=== PATIENT | male | born 1935 | race Caucasian/White ===

== ENCOUNTER 2016-07-24 10:21 | Emergency (ER) | payer MEDICARE, BC ==
--- NOTE | 2016-07-24 10:43 | EDM.PDOC ---
[id number]: 07/24/16 10:25 Source of Information: Reports: Patient, EMS, RN History Limitations: Reports: No limitations - History of Present Illness INITIAL COMMENTS - FREE TEXT/NARRATIVE: 81-year-old male who had a coughing spell yesterday followed by some brief mental status change had a second episode this morning that was similar so the nurses sent him in to be seen. Apparently he has a history of aspiration pneumonia. His vitals are stable and EMS felt he was oriented, asymptomatic, his blood sugar was 140 an EKG showed atrial fibrillation. He displayed no shortness of breath or cough while in route or at the emergency room. Onset: unknown/unsure Severity: mild Associated Symptoms: Denies: chest pain, fever/chills, headaches, shortness of breath Denies pain Pain Score (Numeric/FACES): 0 - Related Data Allergies Allergy/AdvReac Type Severity Reaction Status Date / Time lorazepam Allergy Cannot Verified 07/24/16 10:46 Remember Home Meds: Home Meds Acetaminophen [Acetaminophen Extra Strength] 500 mg PO QID PRN 04/09/14 [History ] Donepezil [Aricept] 10 mg PO BEDTIME 04/09/14 [History] Lisinopril [Prinivil] 5 mg PO DAILY 04/09/14 [History] Loperamide [Imodium] 2 mg PO ASDIRECTED PRN 04/09/14 [History] Nitroglycerin [Nitrostat] 0.4 mg PO ASDIRECTED PRN 04/09/14 [History] Simvastatin [Zocor] 40 mg PO DAILY 04/09/14 [History] Warfarin Sodium 10 mg PO DAILY 04/09/14 [History] Citalopram Hydrobromide [Celexa] 10 mg PO DAILY 05/24/16 [History] Insulin Aspart [Novolog Flexpen] 10 units SUBCUT TIDMEALS 05/24/16 [History] Insulin Glarg,Human.Rec.Analog [LantUS Solostar] 25 unit SUBCUT BEDTIME [History] Insulin Glarg,Human.Rec.Analog [LantUS Solostar] 52 unit SUBCUT DAILY 05/24/16 [ History] Moxifloxacin [Vigamox 0.5% Ophth Soln] 1 drop EYEBOTH QID 05/24/16 [History] prednisoLONE Acetate [Pred Forte 1% Ophth Susp] 1 drop EYEBOTH QID 05/24/16 [ History] Past Medical History HEENT History: Reports: Cataract, Hard of hearing Cardiovascular History: Reports: Afib (Paroxysmal), Hypertension Respiratory History: Reports: PE Gastrointestinal History: Reports: Cholelithiasis Genitourinary History: Reports: Prostate disorder Neurological History: Reports: Alzheimers disease Psychiatric History: Reports: Dementia Endocrine/Metabolic History: Reports: Diabetes, type II Oncologic (Cancer) History: Reports: Prostate Dermatologic History: Reports: Other (see below) Other Dermatologic History: skin cancer - Past Surgical History HEENT Surgical History: Reports: Cataract surgery GI Surgical History: Reports: Cholecystectomy Male Surgical History: Reports: Prostatectomy, Other (see below) Other Male Surgeries/Procedures: testicles removed bilat Neurological Surgical History: Reports: Thoracic spine, Other (see below) Other Neurological Surgeries/Procedures: 2 rods in back Social & Family History - Tobacco Use Smoking Status *Q: Unknown Ever Smoked Second Hand Smoke Exposure: No - Caffeine Use Caffeine Use: Reports: None - Alcohol Use Days Per Week of Alcohol Use: 0 - Recreational Drug Use Recreational Drug Use: No ED ROS GENERAL - Review of Systems Review Of Systems: See Below Constitutional: Denies: fever, chills, malaise Respiratory: Reports: Cough. Denies: Shortness of Breath Cardiovascular: Denies: Chest pain GI/Abdominal: Denies: Abdominal pain, Nausea, Vomiting Neurological: Denies: Headache ED EXAM, GENERAL - Physical Exam Exam: See Below Exam Limited By: No limitations General Appearance: alert, no apparent distress Eye Exam: bilateral eye: EOMI Respiratory/Chest: no respiratory distress, lungs clear Cardiovascular: irregularly irregular GI/Abdominal: soft, non tender Neurological: alert Psychiatric: normal affect, normal mood Skin Exam: Warm, Dry Course - Vital Signs Last Recorded V/S: Last Vital Signs Temp 98.1 F 07/24/16 10:55 Pulse 65 07/24/16 11:55 Resp 16 07/24/16 11:55 BP 111/89 07/24/16 11:55 Pulse Ox 91 L 07/24/16 11:55 - Orders/Labs/Meds Labs: Laboratory Tests 07/24/16 07/24/16 Range/Units 10:55 10:55 WBC 12.7 H (4.5-11.0) K/uL RBC 4.74 (4.30-5.90) M/uL Hgb 14.4 (12.0-15.0) g/dL Hct 43.7 (40.0-54.0) % MCV 92 (80-98) fL MCH 30 (27-31) pg MCHC 33 (32-36) % Plt Count 247 (150-400) K/uL Neut % (Auto) 81 H (36-66) % Lymph % (Auto) 7 L (24-44) % Jack % (Auto) 11 H (2-6) % Eos % (Auto) 1 L (2-4) % Baso % (Auto) 0 (0-1) % Sodium 138 L (140-148) mmol/L Potassium 4.9 (3.6-5.2) mmol/L Chloride 102 (100-108) mmol/L Carbon Dioxide 31 (21-32) mmol/L Anion Gap 9.9 (5.0-14.0) mmol/L BUN 19 H (7-18) mg/dL Creatinine 1.1 (0.8-1.3) mg/dL Est Cr Clr Drug Dosing 60.22 mL/min Estimated GFR (MDRD) > 60 (>60) Glucose 147 H (74-106) mg/dL Calcium 8.6 (8.5-10.1) mg/dL - Re-Assessments/Exams Free Text/Narrative Re-Assessment/Exam: 07/24/16 10:42 Despite the patient not displaying any symptoms his pulse oximetry was mildly low at 89-91% on room air so a one view portable chest x-ray was obtained along with a CBC and BMP. 07/24/16 10:55 Pulse oximetry improved to low to mid 90s on room air, chest x-ray was negative. 07/24/16 11:25 White count was slightly elevated at 12,700 but the rest of his labs were reassuring. Patient remained stable and asymptomatic while in the emergency room over a course of 2 hours. No treatment needed at this time, he'll be discharged back to the intermediate with followup if worsening or concerns. Departure - Departure Time of Disposition: 12:16 Disposition: DC/Tfer to [facility] Condition: good Clinical Impression: Confused, Dementia, Cough in adult patient Instructions: Cough, Adult, [id number], Confusion, Dementia, [id number] Referrals: PCP,None [Primary Care Provider] - Forms: ED Department Discharge Additional Instructions: No change in medications at this time, recheck if fever or difficulty breathing occurs. Keep appointment this afternoon with his primary care as scheduled if possible.
--- NOTE | 2016-07-24 11:59 | CR ---
Mild-moderate cardiomegaly. Cardiomegaly stable compared to 04/10/2014. Postsurgical changes to the sp ine.. Pulmonary vasculature within normal limits. Streaky density left lung base is evident. Mildly worse compared to prior this could reflect atelectatic change only developing infiltrate difficult t o exclude. Focal nodule about the left first rib this could indicate a calcified granuloma but not d efinitive. CT follow-up could exclude a noncalcified pulmonary nodule. Findings called to Dr.Kobrige concpecion
[2016-07-24 12:15] VITALS: BP 111/89
== END 2016-07-24 11:30 ==
LOC: JP.ED 10:21
DX: R41.0 Disorientation, unspecified (principal); F03.90 Unspecified dementia, unspecified severity, without behavioral disturbance, psychotic disturbance, mood disturbance, and anxiety; R05 Cough; I48.91 Unspecified atrial fibrillation; I10 Essential (primary) hypertension; F02.80 Dementia in other diseases classified elsewhere, unspecified severity, without behavioral disturbance, psychotic disturbance, mood disturbance, and anxiety; G30.9 Alzheimer's disease, unspecified; E11.9 Type 2 diabetes mellitus without complications; Z85.46 Personal history of malignant neoplasm of prostate; Z86.711 Personal history of pulmonary embolism; Z98.49 Cataract extraction status, unspecified eye; Z90.49 Acquired absence of other specified parts of digestive tract; Z90.79 Acquired absence of other genital organ(s); Z98.890 Other specified postprocedural states; Z79.4 Long term (current) use of insulin; Z79.01 Long term (current) use of anticoagulants; Z79.899 Other long term (current) drug therapy; Z88.8 Allergy status to other drugs, medicaments and biological substances
CPT/HCPCS: 36415; 71010; 71010-26; 80048; 85025; 99284; 99285

== ENCOUNTER 2017-04-09 02:29 | Emergency (ER) | payer MEDICARE, BC ==
--- NOTE | 2017-04-09 03:09 | EDM.PDOC ---
ED HPI GENERAL MEDICAL PROBLEM - General Chief Complaint: General Stated Complaint: FALL VIA NORTH Time Seen by Provider: 04/09/17 03:04 Source of Information: Reports: Patient History Limitations: Reports: No Limitations - History of Present Illness INITIAL COMMENTS - FREE TEXT/NARRATIVE: pt fell forward out of a lift chair and hit his nose. He has a skin tear on the scalp and a skin tear over his nose. Onset: Today, Sudden, Other (pt fell forward. ) Duration: Hour(s): Location: Reports: Face Associated Symptoms: Reports: No Other Symptoms nose/ forehead Pain Score (Numeric/FACES): 5 - Related Data Allergies Allergy/AdvReac Type Severity Reaction Status Date / Time lorazepam Allergy Cannot Verified 04/09/17 02:33 Remember Home Meds: Home Meds Acetaminophen [Acetaminophen Extra Strength] 650 mg PO TID 04/09/14 [History] Donepezil [Aricept] 10 mg PO BEDTIME 04/09/14 [History] Lisinopril [Prinivil] 5 mg PO DAILY 04/09/14 [History] Nitroglycerin [Nitrostat] 0.4 mg PO ASDIRECTED PRN 04/09/14 [History] Warfarin Sodium 10 mg PO ASDIRECTED 04/09/14 [History] Citalopram Hydrobromide [Celexa] 10 mg PO DAILY 05/24/16 [History] Insulin Aspart [Novolog Flexpen] 16 units SUBCUT TIDMEALS 05/24/16 [History] Insulin Glarg,Human.Rec.Analog [LantUS Solostar] 32 unit SUBCUT BEDTIME [History] Insulin Glarg,Human.Rec.Analog [LantUS Solostar] 55 unit SUBCUT DAILY 05/24/16 [ History] Albuterol/Ipratropium [DuoNeb 3.0-0.5 MG/3 ML] 1 inh INH QID PRN 04/09/17 [ History] Dextrose [Glutose 15] 1 dose PO ASDIRECTED 04/09/17 [History] Diclofenac Sodium [Voltaren 1% Gel] 1 applic TOP TID 04/09/17 [History] Lanolin/Mineral Oil [Eucerin Original Lotion] 1 applic TOP BID 04/09/17 [History ] Loperamide [Imodium] 2 mg PO ASDIRECTED 04/09/17 [History] Sennosides/Docusate Sodium [Senna S Tablet] 1 tab PO ASDIRECTED 04/09/17 [ History] Warfarin Sodium 7.5 mg PO ASDIRECTED 04/09/17 [History] Past Medical History HEENT History: Reports: Cataract, Hard of Hearing Cardiovascular History: Reports: Afib, High Cholesterol, Hypertension Respiratory History: Reports: PE Gastrointestinal History: Reports: Cholelithiasis, GERD Genitourinary History: Reports: Prostate Disorder, Urinary Incontinence Musculoskeletal History: Reports: Back Pain, Chronic Neurological History: Reports: Alzheimers Disease, Neuropathy, Diabetic Psychiatric History: Reports: Dementia Endocrine/Metabolic History: Reports: Diabetes, Type II, Obesity/BMI 30+ Immunologic History: Reports: SLE Oncologic (Cancer) History: Reports: Prostate Dermatologic History: Reports: Other (See Below) Other Dermatologic History: skin cancer - Past Surgical History HEENT Surgical History: Reports: Cataract Surgery GI Surgical History: Reports: Cholecystectomy Male Surgical History: Reports: Prostatectomy Neurological Surgical History: Reports: Thoracic Spine, Other (See Below) Social & Family History - Tobacco Use Smoking Status *Q: Never Smoker Second Hand Smoke Exposure: No - Caffeine Use Caffeine Use: Reports: None - Alcohol Use Days Per Week of Alcohol Use: 0 - Recreational Drug Use Recreational Drug Use: No ED ROS GENERAL - Review of Systems Review Of Systems: See Below Constitutional: Reports: No Symptoms HEENT: Reports: Other (pt has a skin tear on the scalp on the rt and a skin tear over the nose. ) Respiratory: Reports: No Symptoms Cardiovascular: Reports: No Symptoms Endocrine: Reports: No Symptoms GI/Abdominal: Reports: No Symptoms : Reports: No Symptoms ED EXAM, GENERAL - Physical Exam Exam: See Below Free Text/Narrative:: pt arrived after falling forward out of a lift chair. Exam Limited By: No Limitations General Appearance: Alert, Other (pt did respond immediatly, He ended up with a skin tear on his nose and on the rt scalp area. He does have swelling on the nose. pupils are equal and reactive. ) Ears: Normal TMs Nose: Nasal Tenderness, Nasal Swelling, Other ( tender over the bridge of the nose. ) Throat/Mouth: Normal Inspection Head: Atraumatic Neck: Normal Inspection Respiratory/Chest: No Respiratory Distress Cardiovascular: Regular Rate, Rhythm GI/Abdominal: Soft, Non-Tender Back Exam: Normal Inspection Extremities: Pedal Edema, Redness, Other (pt has chronic swelling involving his lower legs. He has no known acuite injury. ) Neurological: Alert, Normal Cognition, Other ( Pt does have dementia. ) Psychiatric: Normal Affect Course - Vital Signs Last Recorded V/S: Last Vital Signs Temp 36.1 C 04/09/17 02:30 Pulse 63 04/09/17 02:30 Resp 18 04/09/17 03:40 BP 171/71 H 04/09/17 03:40 Pulse Ox 92 L 04/09/17 03:40 - Orders/Labs/Meds Meds: Medications Discontinued Medications Generic Name Dose Route Start Last Admin Trade Name Freq PRN Reason Stop Dose Admin Bacitracin 1 dose 04/09/17 03:13 04/09/17 03:40 Bacitracin Oint 1 Gm TOP 04/09/17 03:14 1 dose ONETIME ONE Administration Diphtheria/Tetanus/Acell Pertussis 0.5 ml 04/09/17 03:14 04/09/17 04:01 Adacel IM 04/09/17 03:15 0.5 ml .ONCE ONE Administration - Re-Assessments/Exams Free Text/Narrative Re-Assessment/Exam: 04/09/17 03:12 The skin tears were cleaned and bacatracin was applied. The ap of the nose looks straight. The portable lateral is difficult. -- to see if there is a fracture.-- no definite fracture seen 04/09/17 03:24 04/09/17 03:32 Departure - Departure Time of Disposition: 08:00 Disposition: Home, Self-Care 01 Condition: Fair Clinical Impression: Skin tear, Contusion, nose - Discharge Information Instructions: Contusion, [id number], Abrasion, [id number] Referrals: PCP,None [Primary Care Provider] - Forms: ED Department Discharge Care Plan Goals: keep the skin tears clean and apply bacatracin, daily. tetanus ws updated.
[2017-04-09] MEDS ORDERED: Bacitracin Oint 1 GM U/D Packet TOP ONE (03:13)
[2017-04-09] MEDS ORDERED: Diphtheria,Pertussis(Acell),Tetanus Vaccine 0.5 ML SDV IM ONE (03:14)
[2017-04-09 03:41] VITALS: BP 171/71
--- NOTE | 2017-04-09 09:00 | CR ---
Nasal bone There is a small bone fragment adjacent to the tip of the nasal bone. The finding likely reflects a f racture. The nasal arch appears intact. Impression 1. Evidence for possible fracture of the tip of the nasal bone.
== END 2017-04-09 07:07 | disposition home or self-care (01) ==
LOC: JP.ED 02:29
DX: S01.21XA Laceration without foreign body of nose, initial encounter (principal); S01.01XA Laceration without foreign body of scalp, initial encounter; I10 Essential (primary) hypertension; E78.00 Pure hypercholesterolemia, unspecified; K21.9 Gastro-esophageal reflux disease without esophagitis; E11.40 Type 2 diabetes mellitus with diabetic neuropathy, unspecified; G30.9 Alzheimer's disease, unspecified; F02.80 Dementia in other diseases classified elsewhere, unspecified severity, without behavioral disturbance, psychotic disturbance, mood disturbance, and anxiety; Z79.4 Long term (current) use of insulin; Z79.01 Long term (current) use of anticoagulants; Z79.899 Other long term (current) drug therapy; Z88.8 Allergy status to other drugs, medicaments and biological substances; Z23 Encounter for immunization; W07.XXXA Fall from chair, initial encounter
CPT/HCPCS: 70160; 70160-26; 90471; 90715; 99283; 99284-25

== ENCOUNTER 2017-07-28 17:53 | Emergency (ER) | payer MEDICARE, BC ==
[2017-07-28] MEDS ORDERED: Linezolid 600 MG in Premix Bag 1 BAG IV SCH (18:15)
[2017-07-28] MEDS ORDERED: Lactated Ringers 1,000 ML IV SCH (18:15)
--- NOTE | 2017-07-28 18:25 | EDM.PDOC ---
ED HPI GENERAL MEDICAL PROBLEM - General Chief Complaint: Possible Sepsis Stated Complaint: MEDICAL VIA NORTH Time Seen by Provider: 07/28/17 18:09 Source of Information: Reports: Patient, Old Records, RN Notes Reviewed History Limitations: Reports: Physical Impairment - History of Present Illness INITIAL COMMENTS - FREE TEXT/NARRATIVE: 82-year-old gentleman presents to the emergency department today via EMS services, he has known hearing difficulties therefore the majority of this interview was taken from cooperation of providers and old chart review. He is a [facility] a [facility] was evaluated by primary care provider on July 07 a blister on his to that had been developing over the last couple of weeks. He has a known history of insulin-dependent diabetes mellitus type 2, at that time felt cellulitis started on Keflex 500 mg 4 times a day. He presents today for fevers and chills, he is visibly shaking with the rigors difficult to obtain history concern for development of sepsis - Related Data Allergies Allergy/AdvReac Type Severity Reaction Status Date / Time lorazepam Allergy Cannot Verified 04/09/17 02:33 Remember Home Meds: Home Meds Acetaminophen [Acetaminophen Extra Strength] 650 mg PO TID 04/09/14 [History] Donepezil [Aricept] 10 mg PO BEDTIME 04/09/14 [History] Lisinopril [Prinivil] 5 mg PO DAILY 04/09/14 [History] Nitroglycerin [Nitrostat] 0.4 mg PO ASDIRECTED PRN 04/09/14 [History] Warfarin Sodium 10 mg PO ASDIRECTED 04/09/14 [History] Citalopram Hydrobromide [Celexa] 10 mg PO DAILY 05/24/16 [History] Insulin Aspart [Novolog Flexpen] 16 units SUBCUT TIDMEALS 05/24/16 [History] Insulin Glarg,Human.Rec.Analog [LantUS Solostar] 32 unit SUBCUT BEDTIME [History] Insulin Glarg,Human.Rec.Analog [LantUS Solostar] 55 unit SUBCUT DAILY 05/24/16 [ History] Albuterol/Ipratropium [DuoNeb 3.0-0.5 MG/3 ML] 1 inh INH QID PRN 04/09/17 [ History] Dextrose [Glutose 15] 1 dose PO ASDIRECTED 04/09/17 [History] Diclofenac Sodium [Voltaren 1% Gel] 1 applic TOP TID 04/09/17 [History] Lanolin/Mineral Oil [Eucerin Original Lotion] 1 applic TOP BID 04/09/17 [History ] Loperamide [Imodium] 2 mg PO ASDIRECTED 04/09/17 [History] Sennosides/Docusate Sodium [Senna S Tablet] 1 tab PO ASDIRECTED 04/09/17 [ History] Warfarin Sodium 7.5 mg PO ASDIRECTED 04/09/17 [History] Furosemide [Lasix] 20 mg PO DAILY 07/28/17 [History] Past Medical History HEENT History: Reports: Cataract, Hard of Hearing Cardiovascular History: Reports: Afib, High Cholesterol, Hypertension Respiratory History: Reports: PE Gastrointestinal History: Reports: Cholelithiasis, GERD Genitourinary History: Reports: Prostate Disorder, Urinary Incontinence Musculoskeletal History: Reports: Back Pain, Chronic Neurological History: Reports: Alzheimers Disease, Neuropathy, Diabetic Psychiatric History: Reports: Dementia Endocrine/Metabolic History: Reports: Diabetes, Type II, Obesity/BMI 30+ Immunologic History: Reports: SLE Oncologic (Cancer) History: Reports: Prostate Dermatologic History: Reports: Other (See Below) Other Dermatologic History: skin cancer - Past Surgical History HEENT Surgical History: Reports: Cataract Surgery GI Surgical History: Reports: Cholecystectomy Male Surgical History: Reports: Prostatectomy Neurological Surgical History: Reports: Thoracic Spine, Other (See Below) Social & Family History - Tobacco Use Smoking Status *Q: Unknown Ever Smoked Second Hand Smoke Exposure: No - Caffeine Use Caffeine Use: Reports: Coffee - Alcohol Use Days Per Week of Alcohol Use: 0 - Recreational Drug Use Recreational Drug Use: No ED ROS GENERAL - Review of Systems Review Of Systems: See Below Constitutional: Reports: Fever, Chills, Weakness HEENT: Reports: No Symptoms Respiratory: Reports: No Symptoms Cardiovascular: Reports: No Symptoms GI/Abdominal: Reports: No Symptoms : Reports: No Symptoms Musculoskeletal: Reports: Foot Pain Skin: Reports: Wound Neurological: Reports: No Symptoms ED EXAM, SEPSIS - Physical Exam Exam: See Below Text/Narrative:: Examination of the lower extremities CHRISTINE hose are in place he does have an open wound over digit #3 left foot with some discoloration pedal pulse is diminished Exam Limited By: Physical Impairment General Appearance: Alert, Moderate Distress Throat/Mouth: Normal Inspection, Normal Voice, No Airway Compromise, Other ( Mouth is dry) Head: Atraumatic, Normocephalic Neck: Normal Inspection, Supple, Non-Tender, Full Range of Motion Respiratory/Chest: No Respiratory Distress, Lungs Clear, Normal Breath Sounds, No Accessory Muscle Use Cardiovascular: Regular Rate, Rhythm, No Murmur GI/Abdominal Exam: Soft, Non-Tender Back: Normal Inspection, Full Range of Motion. No: CVA Tenderness (R), CVA Tenderness (L) Course - Vital Signs Last Recorded V/S: Last Vital Signs Temp 99.8 F 07/28/17 22:37 Pulse 73 07/28/17 22:37 Resp 19 07/28/17 22:37 BP 138/60 07/28/17 22:37 Pulse Ox 96 07/28/17 22:37 - Orders/Labs/Meds Orders: Active Orders 24 hr Category Date Time Status Vital Signs [RC] Q1H Care 07/28/17 18:10 Active Chest 1V Frontal [CR] Urgent Exams 07/28/17 18:18 Taken CULTURE BLOOD [BC] Urgent Lab 07/28/17 18:25 Received CULTURE BLOOD [BC] Urgent Lab 07/28/17 20:00 Received UA W/MICROSCOPIC [URIN] Routine Lab 07/28/17 18:09 Ordered Lactated Ringers [Ringers, Lactated] 1,000 ml Med 07/28/17 18:15 Active IV ASDIRECTED Linezolid [Zyvox] 600 mg Med 07/28/17 18:15 Active Premix Bag 1 bag IV Q12H Piperacillin/Tazobactam [Zosyn] 3.375 gm Med 07/28/17 21:30 Active Sodium Chloride 0.9% [Normal Saline] 50 ml IV Q6H Vancomycin 1 gm Med 07/28/17 19:00 Active Sodium Chloride 0.9% [Normal Saline] 250 ml IV Q12H Blood Culture x2 Reflex Set [OM.PC] Urgent Oth 07/28/17 18:10 Ordered Medication Orders Lactated Ringer's (Ringers, Lactated) 1,000 mls @ 999 mls/hr IV ASDIRECTED CHET Last Admin: 07/28/17 18:33 Dose: 999 mls/hr Linezolid 600 mg/ Premix 300 mls @ 300 mls/hr IV Q12H [facility] Last Admin: 07/28/17 18:47 Dose: 300 mls/hr Vancomycin HCl 1 gm/ Sodium (Chloride) 250 mls @ 150 mls/hr IV Q12H [facility] Last Admin: 07/28/17 20:17 Dose: 150 mls/hr Piperacillin Sod/Tazobactam (Sod 3.375 gm/ Sodium Chloride) 50 mls @ 100 mls/ hr IV Q6H [facility] Last Admin: 07/28/17 22:33 Dose: 100 mls/hr Labs: Laboratory Tests 07/28/17 07/28/17 07/28/17 Range/Units 18:10 18:25 18:25 WBC 13.8 H (4.5-11.0) K/uL RBC 4.78 (4.30-5.90) M/uL Hgb 15.2 H (12.0-15.0) g/dL Hct 46.4 (40.0-54.0) % MCV 97 (80-98) fL MCH 32 H (27-31) pg MCHC 33 (32-36) % Plt Count 187 (150-400) K/uL Neut % (Auto) 81 H (36-66) % Lymph % (Auto) 7 L (24-44) % [place] % (Auto) 11 H (2-6) % Eos % (Auto) 1 L (2-4) % Baso % (Auto) 0 (0-1) % PT (9.5-12.0) sec INR (0.80-1.20) Sodium 144 (140-148) mmol/L Potassium 4.3 (3.6-5.2) mmol/L Chloride 103 (100-108) mmol/L Carbon Dioxide 33 H (21-32) mmol/L Anion Gap 12.3 (5.0-14.0) mmol/L BUN 30 H (7-18) mg/dL Creatinine 1.1 (0.8-1.3) mg/dL Est Cr Clr Drug Dosing 59.16 mL/min Estimated GFR (MDRD) > 60 (>60) Glucose 158 H (74-106) mg/dL Lactic Acid 2.5 H (0.4-2.0) mmol/L Calcium 8.9 (8.5-10.1) mg/dL Total Bilirubin 0.8 D (0.2-1.0) mg/dL AST 26 (15-37) U/L ALT 36 D (12-78) U/L Alkaline Phosphatase 101 (46-116) U/L C-Reactive Protein 8.08 H (0.0-0.3) mg/dL Total Protein 7.9 (6.4-8.2) g/dL Albumin 3.0 L (3.4-5.0) g/dL Globulin 4.9 H (2.3-3.5) g/dL Albumin/Globulin Ratio 0.6 L (1.2-2.2) 07/28/17 Range/Units 20:00 WBC (4.5-11.0) K/uL RBC (4.30-5.90) M/uL Hgb (12.0-15.0) g/dL Hct (40.0-54.0) % MCV (80-98) fL MCH (27-31) pg MCHC (32-36) % Plt Count (150-400) K/uL Neut % (Auto) (36-66) % Lymph % (Auto) (24-44) % [place] % (Auto) (2-6) % Eos % (Auto) (2-4) % Baso % (Auto) (0-1) % PT 24.8 H (9.5-12.0) sec INR 2.24 H (0.80-1.20) Sodium (140-148) mmol/L Potassium (3.6-5.2) mmol/L Chloride (100-108) mmol/L Carbon Dioxide (21-32) mmol/L Anion Gap (5.0-14.0) mmol/L BUN (7-18) mg/dL Creatinine (0.8-1.3) mg/dL Est Cr Clr Drug Dosing mL/min Estimated GFR (MDRD) (>60) Glucose (74-106) mg/dL Lactic Acid (0.4-2.0) mmol/L Calcium (8.5-10.1) mg/dL Total Bilirubin (0.2-1.0) mg/dL AST (15-37) U/L ALT (12-78) U/L Alkaline Phosphatase (46-116) U/L C-Reactive Protein (0.0-0.3) mg/dL Total Protein (6.4-8.2) g/dL Albumin (3.4-5.0) g/dL Globulin (2.3-3.5) g/dL Albumin/Globulin Ratio (1.2-2.2) Meds: Medications Generic Name Dose Route Start Last Admin Trade Name Freq PRN Reason Stop Dose Admin Lactated Ringer's 1,000 mls @ 999 mls/hr 07/28/17 18:15 07/28/17 18:33 Ringers, Lactated IV 999 mls/hr ASDIRECTED CHET Administration Linezolid 600 mg/ Premix 300 mls @ 300 mls/hr 07/28/17 18:15 07/28/17 18:47 IV 300 mls/hr Q12H CHET Administration Vancomycin HCl 1 gm/ Sodium 250 mls @ 150 mls/hr 07/28/17 19:00 07/28/17 20: 17 Chloride IV 150 mls/hr Q12H CHET Administration Piperacillin Sod/Tazobactam 50 mls @ 100 mls/hr 07/28/17 21:30 07/28/17 22:33 Sod 3.375 gm/ Sodium Chloride IV 100 mls/hr Q6H CHET Administration Departure - Departure Time of Disposition: 23:11 Disposition: DC/Tfer to Acute Hospital 02 Condition: Fair Clinical Impression: Sepsis Qualifiers: Sepsis type: sepsis due to unspecified organism Qualified Code(s): A41.9 - Sepsis, unspecified organism - Discharge Information Referrals: PCP,None [Primary Care Provider] - Forms: ED Department Discharge - My Orders Last 24 Hours: My Active Orders 07/28/17 18:09 UA W/MICROSCOPIC [URIN] Routine 07/28/17 18:10 Vital Signs [RC] Q1H Blood Culture x2 Reflex Set [OM.PC] Urgent 07/28/17 18:15 Lactated Ringers [Ringers, Lactated] 1,000 ml IV ASDIRECTED Linezolid [Zyvox] 600 mg Premix Bag 1 bag IV Q12H 07/28/17 18:18 Chest 1V Frontal [CR] Urgent 07/28/17 18:25 CULTURE BLOOD [BC] Urgent 07/28/17 19:00 Vancomycin 1 gm Sodium Chloride 0.9% [Normal Saline] 250 ml IV Q12H 07/28/17 20:00 CULTURE BLOOD [BC] Urgent 07/28/17 21:30 Piperacillin/Tazobactam [Zosyn] 3.375 gm Sodium Chloride 0.9% [Normal Saline] 50 ml IV Q6H - Assessment/Plan Last 24 Hours: My Active Orders 07/28/17 18:09 UA W/MICROSCOPIC [URIN] Routine 07/28/17 18:10 Vital Signs [RC] Q1H Blood Culture x2 Reflex Set [OM.PC] Urgent 07/28/17 18:15 Lactated Ringers [Ringers, Lactated] 1,000 ml IV ASDIRECTED Linezolid [Zyvox] 600 mg Premix Bag 1 bag IV Q12H 07/28/17 18:18 Chest 1V Frontal [CR] Urgent 07/28/17 18:25 CULTURE BLOOD [BC] Urgent 07/28/17 19:00 Vancomycin 1 gm Sodium Chloride 0.9% [Normal Saline] 250 ml IV Q12H 07/28/17 20:00 CULTURE BLOOD [BC] Urgent 07/28/17 21:30 Piperacillin/Tazobactam [Zosyn] 3.375 gm Sodium Chloride 0.9% [Normal Saline] 50 ml IV Q6H Plan: Assessment Acuity = acute Site and laterality = diabetic foot ulcer with early sepsis complicated patient to is anticoagulated for pulmonary embolism history as well as diabetes mellitus type 2 hypertension and dyslipidemia Etiology = suspicious for bacterial cause secondary to foot ulcer Manifestations = tachycardia, tachypnea Location of injury = Home Lab values = WBC elevated at 13.8 consistent with leukocytosis INR therapeutic at 2.24 lactic acid elevated at 2.5 consistent lactic acidosis CRP elevated 8.08 albumin low at 3.0 consistent hypoalbuminemia chest x-ray I did not appreciate any acute process, Plan Call discussed the case with MOD at the [facility] in [place] kindly accepted the patient in transfer will be transported via EMS ground has been given Zosyn, vancomycin, Zyvox This note was dictated using [employer] voice recognition software please call with any questions on syntax or [email or web address].
[2017-07-28] MEDS ORDERED: Piperacillin/Tazobactam 3.375 GM in Sodium Chloride 0.9% 50 ML IV SCH (21:30)
[2017-07-28 22:39] VITALS: BP 138/60
[2017-07-28] MEDS ORDERED: Lactated Ringers 1,000 ML IV ONE (23:53)
--- NOTE | 2017-07-29 08:58 | CR ---
Chest 1V Frontal HISTORY: chills and fever FINDINGS: Portable chest, 1850 hours. Linear scarring left lung base appears similar to exam of 07/28/2017. No acute infiltrate is identifie d. Generalized cardiomegaly appears stable. Pulmonary vasculature is not engorged. Blunting of the le ft costophrenic angle could represent a small amount of pleural thickening or fluid. Posterior timothy an d pedicle screw fusion lower thoracic spine is again noted. IMPRESSION: Stable cardiomegaly without evidence for decompensation. Probable linear scarring left britni ng base appears similar to the prior exam. No other acute chest abnormality or significant interval c hange is identified.
== END 2017-07-29 00:15 ==
LOC: JP.ED 17:53
DX: A41.9 Sepsis, unspecified organism (principal); R00.0 Tachycardia, unspecified; E78.00 Pure hypercholesterolemia, unspecified; I10 Essential (primary) hypertension; E11.40 Type 2 diabetes mellitus with diabetic neuropathy, unspecified; Z88.8 Allergy status to other drugs, medicaments and biological substances; Z79.4 Long term (current) use of insulin
CPT/HCPCS: 36415; 71045; 80053; 83605; 85025; 85610; 86140; 87040; 99285; J2020; J2543; J3370; J7050; J7120